=== PATIENT | male | born 1960 | race Caucasian/White ===

== ENCOUNTER 2017-10-07 16:28 | Emergency (ER) | payer OTHER ==
[2017-10-07] MEDS ORDERED: Sodium Chloride 0.9% 10 ML Syringe FLUSH PRN ×2 (16:44→17:47)
[2017-10-07] MEDS ORDERED: Aspirin 81 MG Tab.Chew PO ONE (16:44)
[2017-10-07 16:46] VITALS: BP 144/102
--- NOTE | 2017-10-07 17:36 | EDM.PDOC ---
ED HPI GENERAL MEDICAL PROBLEM - General Chief Complaint: Chest Pain Stated Complaint: CHEST PAIN Time Seen by Provider: 10/07/17 16:39 Source of Information: Reports: Patient History Limitations: Reports: No Limitations - History of Present Illness INITIAL COMMENTS - FREE TEXT/NARRATIVE: The patient presents with chest pain. This started after he came in from the cold when he was out shoveling for 2 hours. He got diaphoretic and he may have passed out for a short time. He says he was recently treated for pneumonia. He also had an AZ a couple of years ago. He went to get a stent and with the cath they noted his arteries were open. He did not need any and they did not think he had an AZ. He has HTN that is controlled. The pain is worse with deep breathing and cough. He has no history of DVT or PE. He does have a history of A-fib and he is on eliquis. He was recently switched from coumadin. Onset: Sudden Duration: Minutes: Location: Reports: Chest Quality: Reports: Sharp Severity: Moderate Improves with: Reports: None Worsens with: Reports: None Associated Symptoms: Reports: Chest Pain, Cough, Fever/Chills. Denies: Nausea/ Vomiting, Shortness of Breath Right Chest Pain Score (Numeric/FACES): 7 - Related Data Allergies Allergy/AdvReac Type Severity Reaction Status Date / Time No Known Allergies Allergy Verified 10/07/17 16:46 Home Meds: Home Meds Albuterol Sulfate [Proair Respiclick] 2 puff INH Q4HR PRN 11/01/15 [History] Aspirin [Halfprin] 1 tab PO DAILY 11/01/15 [History] Carvedilol 1 tab PO BID 11/01/15 [History] Enalapril [Vasotec] 1 tab PO BID 11/01/15 [History] Furosemide [Lasix] 20 mg PO DAILY 11/01/15 [History] Spironolactone [Aldactone] 1 tab PO BID 11/01/15 [History] Apixaban [Eliquis] 5 mg PO BID 10/07/17 [History] Benzonatate 200 mg PO TID PRN 10/07/17 [History] Hydrocodone/Acetaminophen [Hydrocodon-Acetaminophen 5-325] 1 - 2 each PO Q6HR PRN #20 tablet 10/07/17 [Rx] Levofloxacin 500 mg PO DAILY 10/07/17 [History] Nitroglycerin [Nitrostat] 1 tab SL ASDIRECTED PRN 10/07/17 [History] Past Medical History Cardiovascular History: Reports: Afib, Hypertension Respiratory History: Reports: Bronchitis, Recurrent Other Respiratory History: Pt states had a bleb removed from right lung in 2011 Gastrointestinal History: Reports: None Genitourinary History: Reports: None Musculoskeletal History: Reports: None Neurological History: Reports: None Psychiatric History: Reports: None Endocrine/Metabolic History: Reports: None Hematologic History: Reports: None Oncologic (Cancer) History: Reports: None Dermatologic History: Reports: None - Infectious Disease History Infectious Disease History: Reports: None - Past Surgical History Respiratory Surgical History: Reports: Other (See Below) Other Respiratory Surgeries/Procedures: removal of pleura of right lung Social & Family History - Tobacco Use Smoking Status *Q: Current Every Day Smoker Years of Tobacco use: 40 Packs/Tins Daily: 3 - Caffeine Use Caffeine Use: Reports: Coffee, Soda - Alcohol Use Days Per Week of Alcohol Use: 7 Number of Drinks Per Day: 3 Total Drinks Per Week: 21 Date of Last Drink: 10/06/17 Time of Last Drink: 20:00 - Recreational Drug Use Recreational Drug Use: No ED ROS GENERAL - Review of Systems Review Of Systems: See Below Constitutional: Reports: Chills HEENT: Reports: No Symptoms Respiratory: Reports: Cough Cardiovascular: Reports: No Symptoms Endocrine: Reports: No Symptoms GI/Abdominal: Reports: No Symptoms : Reports: No Symptoms Musculoskeletal: Reports: No Symptoms Skin: Reports: No Symptoms ED EXAM, GENERAL - Physical Exam Exam: See Below Exam Limited By: No Limitations General Appearance: Alert, No Apparent Distress Ears: Normal External Exam Nose: Normal Inspection Head: Atraumatic, Normocephalic Neck: Normal Inspection Respiratory/Chest: No Respiratory Distress, Rhonchi Cardiovascular: Regular Rate, Rhythm, No Edema, No Murmur GI/Abdominal: Soft, Non-Tender, No Organomegaly, No Mass Back Exam: Normal Inspection Extremities: Normal Inspection EKG INTERPRETATION EKG Date: 10/07/17 Time: 16:35 Rhythm: A-Fib Rate (Beats/Min): 77 [place]: Normal QRS: Normal ST-T: Normal QT: Normal Course - Vital Signs Last Recorded V/S: Last Vital Signs Temp 96.3 F 10/07/17 16:41 Pulse 87 10/07/17 16:41 Resp 20 10/07/17 16:41 BP 144/102 H 10/07/17 16:41 Pulse Ox 96 10/07/17 18:17 - Orders/Labs/Meds Orders: Active Orders 24 hr Category Date Time Status Cardiac Monitoring [RC] . DIRECTED Care 10/07/17 16:44 Active EKG Documentation Completion [RC] STAT Care 10/07/17 16:45 Active Oxygen Therapy [RC] PRN Care 10/07/17 16:44 Active Peripheral IV Care [RC] . DIRECTED Care 10/07/17 16:45 Active Chest 1V Frontal [CR] Stat Exams 10/07/17 16:45 Taken Sodium Chloride 0.9% [Normal Saline] 100 ml Med 10/07/17 18:00 Active IV ASDIRECTED Sodium Chloride 0.9% [Saline Flush] Med 10/07/17 16:44 Active 10 ml FLUSH ASDIRECTED PRN Sodium Chloride 0.9% [Saline Flush] Med 10/07/17 17:47 Active 10 ml FLUSH ONETIME PRN Peripheral IV Insertion Adult [OM.PC] Stat Oth 10/07/17 16:44 Ordered Medication Orders Sodium Chloride (Normal Saline) 100 mls @ 65 mls/hr IV ASDIRECTED EMILY Last Admin: 10/07/17 18:09 Dose: 65 mls/hr Sodium Chloride (Saline Flush) 10 ml FLUSH ASDIRECTED PRN PRN Reason: Keep Vein Open Last Admin: 10/07/17 16:53 Dose: 10 ml Sodium Chloride (Saline Flush) 10 ml FLUSH ONETIME PRN PRN Reason: IV FLUSH Last Admin: 10/07/17 18:10 Dose: 10 ml Labs: Laboratory Tests 10/07/17 10/07/17 10/07/17 Range/Units 16:40 16:40 16:40 WBC 18.31 H (4.23-9.07) K/mm3 RBC 5.03 (4.63-6.08) M/mm3 Hgb 17.6 H (13.7-17.5) gm/L Hct 52.3 H (40.1-51.0) % MCV 104.0 H (79.0-92.2) fl MCH 35.0 H (25.7-32.2) pg MCHC 33.7 (32.2-35.5) g/dl RDW Std Deviation 50.7 H (35.1-43.9) fL Plt Count 238 (163-337) K/mm3 MPV 9.0 L (9.4-12.3) fl Neut % (Auto) 75.3 H (34.0-67.9) % Lymph % (Auto) 14.5 L (21.8-53.1) % [place] % (Auto) 7.6 (5.3-12.2) % Eos % (Auto) 1.2 (0.8-7.0) Baso % (Auto) 0.4 (0.1-1.2) % Neut # (Auto) 13.80 H (1.78-5.38) K/mm3 Lymph # (Auto) 2.65 (1.32-3.57) K/mm3 [place] # (Auto) 1.39 H (0.30-0.82) K/mm3 Eos # (Auto) 0.22 (0.04-0.54) K/mm3 Baso # (Auto) 0.07 (0.01-0.08) K/mm3 Manual Slide Review Normal smear D-Dimer, Quantitative 6.17 H (0.19-0.59) mg/L Sodium 137 (136-145) mEq/L Potassium 4.3 (3.5-5.1) mEq/L Chloride 103 (98-107) mEq/L Carbon Dioxide 28 (21-32) mEq/L Anion Gap 10.3 (5-15) BUN 14 (7-18) mg/dL Creatinine 0.9 (0.7-1.3) mg/dL Est Cr Clr Drug Dosing 108.23 mL/min Estimated GFR (MDRD) > 60 (>60) mL/min BUN/Creatinine Ratio 15.6 (14-18) Glucose 109 H (74-106) mg/dL Calcium 8.7 (8.5-10.1) mg/dL Total Bilirubin 0.6 (0.2-1.0) mg/dL AST 49 H (15-37) U/L ALT 62 (16-63) U/L Alkaline Phosphatase 58 (46-116) U/L Troponin I < 0.017 (0.00-0.056) ng/mL Total Protein 7.6 (6.4-8.2) g/dl Albumin 3.1 L (3.4-5.0) g/dl Globulin 4.5 gm/dL Albumin/Globulin Ratio 0.7 L (1-2) Meds: Medications Generic Name Dose Route Start Last Admin Trade Name Afua PRN Reason Stop Dose Admin Sodium Chloride 100 mls @ 65 mls/hr 10/07/17 18:00 10/07/17 18:09 Normal Saline IV 65 mls/hr ASDIRECTED EMILY Administration Sodium Chloride 10 ml 10/07/17 16:44 10/07/17 16:53 Saline Flush FLUSH 10 ml ASDIRECTED PRN Administration Keep Vein Open Sodium Chloride 10 ml 10/07/17 17:47 10/07/17 18:10 Saline Flush FLUSH 10 ml ONETIME PRN Administration IV FLUSH Discontinued Medications Generic Name Dose Route Start Last Admin Trade Name Afua PRN Reason Stop Dose Admin Aspirin 324 mg 10/07/17 16:44 10/07/17 16:53 Aspirin PO 10/07/17 16:45 324 mg ONETIME ONE Administration Iopamidol 100 ml 10/07/17 17:47 10/07/17 18:09 Isovue-370 (76%) IVPUSH 10/07/17 17:48 100 ml ONETIME ONE Administration Iopamidol 50 ml 10/07/17 17:47 10/07/17 18:09 Isovue-370 (76%) IVPUSH 10/07/17 17:48 50 ml ONETIME ONE Administration - Re-Assessments/Exams Free Text/Narrative Re-Assessment/Exam: 10/07/17 17:52 I ordered an IV saline lock, aspirin, EKG, CXR and labs. His EKG shows A-fib with no acute changes. His CXR shows some congestion and possibly an early infiltrate to the right lower lung. 10/07/17 17:55 His WBC was elevated at 18.31. His Hgb was a little elevated at 17.6. His AST was elevated at 49. His troponin is negative. 10/07/17 18:28 His D-dimer was elevated at 6.17. I have ordered a CT angio of his chest. 10/07/17 19:[address] shows rib fractures involving the second through sixth ribs. No callus is seen and these are felt to fairly acute. Old rib fracture noted within the sixth rib with adjacent pleural thickening. No findings of pulmonary embolism. Incidental cyst within the left lobe of the liver. No acute pulmonary densities are seen. He may have passed out in his house and broke some ribs. I will give him a dilaudid here and incentive spyrometry. I will also give him a prescription for something for pain. 10/07/17 19:07 I will also get him on a holter monitor for 48 hours. Departure - Departure Time of Disposition: 19:10 Disposition: Home, Self-Care 01 Condition: Good Clinical Impression: Rib fractures Qualifiers: Encounter type: initial encounter Rib fracture type: multiple ribs Fracture type: closed Laterality: right Qualified Code(s): S22.41XA - Multiple fractures of ribs, right side, initial encounter for closed fracture Syncope Qualifiers: Syncope type: unspecified Qualified Code(s): R55 - Syncope and collapse Prescriptions: Hydrocodone/Acetaminophen [Hydrocodon-Acetaminophen 5-325] 1 - 2 each PO Q6HR PRN #20 tablet PRN Reason: Pain Referrals: Jose Daniel Jr, MD [Primary Care Provider] - 1 Week Forms: ED Department Discharge Additional Instructions: Wear the holter monitor for 48 hours. Use the incentive spyrometer 10 reps every other hour while awake for 5 days. Finish taking the levaquin. Take the hydrocodone as needed for pain. Follow up with Dr Daniel in 1 week. Please return if you are worse such as more pain, shortness of breath, cough or fever. - My Orders Last 24 Hours: My Active Orders 10/07/17 16:44 Cardiac Monitoring [RC] . DIRECTED Oxygen Therapy [RC] PRN Sodium Chloride 0.9% [Saline Flush] 10 ml FLUSH ASDIRECTED PRN Peripheral IV Insertion Adult [OM.PC] Stat 10/07/17 16:45 EKG Documentation Completion [RC] STAT Peripheral IV Care [RC] . DIRECTED Chest 1V Frontal [CR] Stat 10/07/17 17:47 Sodium Chloride 0.9% [Saline Flush] 10 ml FLUSH ONETIME PRN 10/07/17 18:00 Sodium Chloride 0.9% [Normal Saline] 100 ml IV ASDIRECTED - Assessment/Plan Last 24 Hours: My Active Orders 10/07/17 16:44 Cardiac Monitoring [RC] . DIRECTED Oxygen Therapy [RC] PRN Sodium Chloride 0.9% [Saline Flush] 10 ml FLUSH ASDIRECTED PRN Peripheral IV Insertion Adult [OM.PC] Stat 10/07/17 16:45 EKG Documentation Completion [RC] STAT Peripheral IV Care [RC] . DIRECTED Chest 1V Frontal [CR] Stat 10/07/17 17:47 Sodium Chloride 0.9% [Saline Flush] 10 ml FLUSH ONETIME PRN 10/07/17 18:00 Sodium Chloride 0.9% [Normal Saline] 100 ml IV ASDIRECTED
[2017-10-07] MEDS ORDERED: Iopamidol 755 Mg/ML 100 ML Bottle IVPUSH ONE (17:47)
[2017-10-07] MEDS ORDERED: Iopamidol 755 MG/ML 50 ML Bottle IVPUSH ONE (17:47)
[2017-10-07] MEDS ORDERED: Sodium Chloride 0.9% 100 ML IV SCH (18:00)
--- NOTE | 2017-10-07 18:36 | CT ---
Addendum: Technique portion of the dictation shows a voice recognition error. The last sentence within the technique paragraph should read as follows: Study has been performed as a pulmonary angiogram protocol. --- Addendum1 above dictated on [10/11/2017 10:09] by [Arie Penny Hilton J.] --- --- Addendum1 above signed on [10/11/2017 10:11] by [Arie Penny Hilton J.] --- --- Original report below dictated on [10/07/2017 18:32] by [Arie Penny Hilton J.] --- --- Original report below signed on [10/07/2017 18:32] by [Arie Penny Hilton J.] --- CT chest Technique: Multiple axial sections through the chest were obtained. Intravenous contrast was utilized. Study has been performed as a pulmonary antrum protocol. Findings: Pulmonary arteries are fairly well-opacified. There are no filling defects seen to indicate pulmonary embolism. Mediastinum and hilar regions show no adenopathy or mass. No abnormality is seen within the visualized upper abdomen other than a cyst within the liver measuring 1.7 cm. Lungs show nothing acute. Fractures are seen within the right anterior second, third and fourth ribs. Additional fracture with in the anterolateral sixth rib is seen. There is no bridging callus within these fractures so age is fairly acute. Slight pleural thickening is seen in an area of an old healed rib fracture within the sixth lateral right rib. More acute rib fracture is seen more anteriorly within the sixth rib. No left-sided rib fracture is seen. Impression: 1. Rib fractures involving the second through sixth ribs. No callus is seen and these are felt to be fairly acute. 2. Old rib fracture noted within the sixth rib with adjacent pleural thickening. 3. No findings of pulmonary embolism. Incidental cyst within the left lobe of the liver. 4. No acute pulmonary densities are seen. Diagnostic code #3 --- Addendum1 signed ---
[2017-10-07] MEDS ORDERED: HYDROmorphone 1 MG/ML Syringe IVPUSH ONE (19:05)
--- NOTE | 2017-10-08 07:14 | CR ---
Chest: Portable view of the chest was obtained. Comparison: Prior chest x-ray of 11/01/15. Heart is slightly enlarged. Upper mediastinum is normal. Pulmonary vessels are mildly congested. Slight atelectasis is noted within the left lung base. Bony structures are grossly intact. Impression: 1. Findings as noted above. No significant change from previous study is seen. Diagnostic code #3
== END 2017-10-07 19:56 | disposition home or self-care (01) ==
LOC: JD.ED 16:28
DX: S22.41XA Multiple fractures of ribs, right side, initial encounter for closed fracture (principal); R55 Syncope and collapse; I10 Essential (primary) hypertension; I48.91 Unspecified atrial fibrillation; I25.2 Old myocardial infarction; F17.210 Nicotine dependence, cigarettes, uncomplicated; Z79.82 Long term (current) use of aspirin; Z79.899 Other long term (current) drug therapy; X58.XXXA Exposure to other specified factors, initial encounter
CPT/HCPCS: 36415; 71045; 71275; 80053; 84484; 85025; 85379; 93005; 96374; 99285; A9270; J1170; J7030; J7050; Q9967; 93010; 99284

== ENCOUNTER 2017-11-18 09:31 | Day surgery (SDC) | payer OTHER ==
[~2017-11-18 09:31] MED LIST: Cefuroxime 10 MG/ML SYRINGE EYERT SCH; Pilocarpine 4% Ophth Soln 15 ML Bot EYERT SCH
[2017-11-18] MEDS: Polymyxin B/Trimethoprim 10 ML Bottle EYERT SCH ×3 (11:01→12:53)
[2017-11-18] MEDS: Brimonidine 0.2% Ophth Soln 5 ML Bottle EYERT SCH ×3 (11:06→12:53)
[2017-11-18] MEDS: Phenylephrine 2.5% Ophth Soln 2 ML Bot EYERT SCH ×6 (11:11→12:25)
--- NOTE | 2017-11-18 11:45 | PCM.PREANE ---
Preanesthetic Assessment - Anesthesia/Transfusion/Family Hx Anesthesia History: Prior Anesthesia Without Reaction Family History of Anesthesia Reaction: No Transfusion History: No Prior Transfusion(s) Intubation History: Unknown - Review of Systems General: No Symptoms Pulmonary: No Symptoms Cardiovascular: No Symptoms Gastrointestinal: No Symptoms Neurological: No Symptoms, Change in Speech - Physical Assessment NPO Status Date: 11/17/17 NPO Status Time: 21:30 Pulse: 86 O2 Sat by Pulse Oximetry: 97 Respiratory Rate: 20 Blood Pressure: 128/81 Vital Signs: Last Vital Signs Temp 37.2 C 11/18/17 10:45 Pulse 86 11/18/17 10:45 Resp 20 11/18/17 10:45 BP 128/81 11/18/17 10:45 Pulse Ox 97 11/18/17 10:45 Height: 1.91 m Weight: 145.15 kg ASA Class: 2 Mental Status: Alert & Oriented x3 Airway Class: Mallampati = 2 Dentition: Reports: Normal Dentition Thyro-Mental Finger Breadths: 2 Mouth Opening Finger Breadths: 3 ROM/Head Extension: Full Lungs: Wheezing (insp wheeze RUL) Cardiovascular: Irregular Rhythm (pt states a-fib) - Allergies Allergies/Adverse Reactions: Allergies Allergy/AdvReac Type Severity Reaction Status Date / Time No Known Allergies Allergy Verified 11/17/17 12:34 PreAnesthesia Questionnaire HEENT History: Reports: Cataract Cardiovascular History: Reports: Afib, Hypertension Respiratory History: Reports: Bronchitis, Recurrent Other Respiratory History: Pt states had a bleb removed from right lung in 2011 Gastrointestinal History: Reports: None Genitourinary History: Reports: None Musculoskeletal History: Reports: None Neurological History: Reports: None Psychiatric History: Reports: None Endocrine/Metabolic History: Reports: None Hematologic History: Reports: None Oncologic (Cancer) History: Reports: None Dermatologic History: Reports: None - Infectious Disease History Infectious Disease History: Reports: None - Past Surgical History Head Surgeries/Procedures: Reports: None HEENT Surgical History: Reports: None Cardiovascular Surgical History: Reports: None Respiratory Surgical History: Reports: Other (See Below) Other Respiratory Surgeries/Procedures: removal of pleura of right lung GI Surgical History: Reports: None, Appendectomy Female Surgical History: Reports: None Male Surgical History: Reports: None Endocrine Surgical History: Reports: None Neurological Surgical History: Reports: None Musculoskeletal Surgical History: Reports: None Oncologic Surgical History: Reports: None Dermatological Surgical History: Reports: None - SUBSTANCE USE Smoking Status *Q: Current Every Day Smoker Tobacco Use Within Last Twelve Months: Cigarettes Days Per Week of Alcohol Use: 7 Number of Drinks Per Day: 3 Total Drinks Per Week: 21 Recreational Drug Use History: No - HOME MEDS Home Medications: Home Meds Aspirin [Halfprin] 1 tab PO DAILY 11/01/15 [History] Carvedilol 1 tab PO BID 11/01/15 [History] Enalapril [Vasotec] 1 tab PO BID 11/01/15 [History] Furosemide [Lasix] 20 mg PO DAILY 11/01/15 [History] Spironolactone [Aldactone] 1 tab PO BID 11/01/15 [History] Apixaban [Eliquis] 5 mg PO BID 10/07/17 [History] Benzonatate 200 mg PO TID PRN 10/07/17 [History] - CURRENT (IN HOUSE) MEDS Current Meds: Current Medications Brimonidine Tartrate (Alphagan 0.2% Ophth Soln) 0 ml EYERT ASDIRECTED EMILY Stop: 11/18/17 18:00 Last Admin: 11/18/17 11:06 Dose: 1 drop Cefuroxime Sodium (Zinacef) 0 mg EYERT ASDIRECTED EMILY Stop: 11/18/17 18:00 Lidocaine HCl (Xylocaine-Mpf 1%) 10 ml INJECT ASDIRECTED EMILY Stop: 11/18/17 18:00 Phenylephrine HCl (Jeffery-Synephrine 2.5% Ophth Soln) 0 ml EYERT ASDIRECTED EMILY Stop: 11/18/17 18:00 Last Admin: 11/18/17 11:35 Dose: 1 drop Pilocarpine HCl (Pilocar 4% Ophth Soln) 0 ml EYERT ASDIRECTED EMLIY Stop: 11/18/17 18:00 Polymyxin/Trimethoprim Sulfate (Polytrim Ophth Soln) 0 ml EYERT ASDIRECTED EMILY Stop: 11/18/17 18:00 Last Admin: 11/18/17 11:01 Dose: 1 drop Tetracaine HCl (Tetracaine 0.5% Steri-Unit Meri) 0 ml EYERT ASDIRECTED EMILY Stop: 11/18/17 18:00 Tropicamide (Mydriacyl 1% Ophth Soln) 0 ml EYERT ASDIRECTED EMILY Stop: 11/18/17 18:00 Last Admin: 11/18/17 11:29 Dose: 1 drop
[2017-11-18] MEDS: Tetracaine HCl/PF 0.5% 4 ML Bottle EYERT SCH ×2 (12:04→12:42)
[2017-11-18] MEDS: Lidocaine 1% PF 2 ML SDV INJECT SCH ×2 (12:20→12:41)
--- NOTE | 2017-11-18 13:05 | PCM48HPAN ---
Post Anesthesia Note - EVALUATION WITHIN 48HRS OF ANESTHETIC Vital Signs in Normal Range: Yes Patient Participated in Evaluation: Yes Respiratory Function Stable: Yes Airway Patent: Yes Cardiovascular Function Stable: Yes Hydration Status Stable: Yes Pain Control Satisfactory: Yes Nausea and Vomiting Control Satisfactory: Yes Mental Status Recovered: Yes Pulse Rate: 86 SaO2: 95 Resp Rate: 20 Temperature: 97 C Blood Pressure: 147/70
[2017-11-18 14:11] VITALS: BP 141/87
== END 2017-11-18 13:08 | disposition home or self-care (01) ==
LOC: JD.SDS 09:31
PROVIDERS: ATTEND Ophthalmology
DX: H25.813 Combined forms of age-related cataract, bilateral (principal); H02.831 Dermatochalasis of right upper eyelid; H02.834 Dermatochalasis of left upper eyelid; I48.91 Unspecified atrial fibrillation; I10 Essential (primary) hypertension; F17.210 Nicotine dependence, cigarettes, uncomplicated; Z90.49 Acquired absence of other specified parts of digestive tract; Z98.890 Other specified postprocedural states; Z79.82 Long term (current) use of aspirin; Z79.01 Long term (current) use of anticoagulants; Z79.899 Other long term (current) drug therapy
CPT/HCPCS: 66984; C1780; J0697; A9270-GY

== ENCOUNTER 2018-12-30 06:18 | Day surgery (SDC) | payer OTHER ==
[~2018-12-30 06:18] MED LIST changes: -Cefuroxime 10 MG/ML SYRINGE EYERT SCH; +Lactated Ringers 1,000 ML IV SCH; +Lidocaine 1%/Sod Bicarbonate in NS 8.4% 1 ML Syringe IDERM PRN; -Pilocarpine 4% Ophth Soln 15 ML Bot EYERT SCH; +Sodium Chloride 0.9% 10 ML Syringe FLUSH PRN
[2018-12-30] MEDS ORDERED: Albuterol 0.083% 2.5 MG/3 ML Neb Soln NEB ONE (06:50)
--- NOTE | 2018-12-30 07:15 | PCM.PREANE ---
Preanesthetic Assessment - Anesthesia/Transfusion/Family Hx Anesthesia History: Prior Anesthesia Without Reaction Family History of Anesthesia Reaction: No Transfusion History: No Prior Transfusion(s) Intubation History: Unknown - Review of Systems General: Weakness Pulmonary: Shortness of Breath, Cough Cardiovascular: Dyspnea on Exertion Gastrointestinal: No Symptoms Neurological: No Symptoms Other: Reports: None - Physical Assessment NPO Status Date: 12/30/18 NPO Status Time: 02:00 Pulse: 86 O2 Sat by Pulse Oximetry: 93 Respiratory Rate: 20 Blood Pressure: 142/81 Temperature: 36.6 C Vital Signs: Last Vital Signs Temp 36.5 C 12/30/18 06:30 Pulse 86 12/30/18 06:30 Resp 20 12/30/18 06:30 BP 142/81 H 12/30/18 06:30 Pulse Ox 93 L 12/30/18 06:30 Height: 1.91 m Weight: 153.314 kg ASA Class: 3 Mental Status: Alert & Oriented x3 Airway Class: Mallampati = 2 Dentition: Reports: [place](s) Thyro-Mental Finger Breadths: 2 Mouth Opening Finger Breadths: 2 ROM/Head Extension: Full Lungs: Clear to Auscultation, Normal Respiratory Effort Cardiovascular: Regular Rate, Regular Rhythm - Allergies Allergies/Adverse Reactions: Allergies Allergy/AdvReac Type Severity Reaction Status Date / Time No Known Allergies Allergy Verified 12/29/18 12:04 - Blood Blood Available: No Product(s) Available: None - Anesthesia Plan Pre-Op Medication Ordered: Beta Vianney Beta Vianney: Carvedilol Med Last Dose Date: 12/30/18 Med Last Dose Time: 06:00 - Acknowledgements Anesthesia Type Planned: MAC Pt an Appropriate Candidate for the Planned Anesthesia: Yes Alternatives and Risks of Anesthesia Discussed w Pt/Guardian: Yes Pt/Guardian Understands and Agrees with Anesthesia Plan: Yes PreAnesthesia Questionnaire HEENT History: Reports: Cataract, Impaired Vision Cardiovascular History: Reports: Afib, CAD, Hypertension Respiratory History: Reports: Bronchitis, Recurrent, COPD, Sleep Apnea, SOB Other Respiratory History: Pt states had a bleb removed from right lung in 2011 Gastrointestinal History: Reports: None Genitourinary History: Reports: None Musculoskeletal History: Reports: Back Pain, Chronic Neurological History: Reports: None Psychiatric History: Reports: None Endocrine/Metabolic History: Reports: None Hematologic History: Reports: None Immunologic History: Reports: None Oncologic (Cancer) History: Reports: None Dermatologic History: Reports: None - Infectious Disease History Infectious Disease History: Reports: None - Past Surgical History Head Surgeries/Procedures: Reports: None HEENT Surgical History: Reports: None Cardiovascular Surgical History: Reports: None Respiratory Surgical History: Reports: Other (See Below) Other Respiratory Surgeries/Procedures: removal of pleura of right lung GI Surgical History: Reports: Appendectomy Female Surgical History: Reports: None Male Surgical History: Reports: None Endocrine Surgical History: Reports: None Neurological Surgical History: Reports: None Musculoskeletal Surgical History: Reports: None Oncologic Surgical History: Reports: None Dermatological Surgical History: Reports: None - SUBSTANCE USE Smoking Status *Q: Current Every Day Smoker Tobacco Use Within Last Twelve Months: Cigarettes Second Hand Smoke Exposure: Yes Days Per Week of Alcohol Use: 7 Number of Drinks Per Day: 2 Total Drinks Per Week: 14 Recreational Drug Use History: No - HOME MEDS Home Medications: Home Meds Aspirin [Halfprin] 81 mg PO DAILY 11/01/15 [History] Carvedilol 12.5 mg PO BID 11/01/15 [History] Enalapril [Vasotec] 5 mg PO DAILY 11/01/15 [History] Furosemide [Lasix] 20 mg PO DAILY 11/01/15 [History] Spironolactone [Aldactone] 1 tab PO BID 11/01/15 [History] Apixaban [Eliquis] 5 mg PO BID 10/07/17 [History] Umeclidinium Brm/Vilanterol Tr [Anoro Ellipta 62.5-25 MCG] 1 puff INH DAILY 01/13 [History] - CURRENT (IN HOUSE) MEDS Current Meds: Current Medications Lactated Ringer's (Ringers, Lactated) 1,000 mls @ 125 mls/hr IV ASDIRECTED EMILY Stop: 12/30/18 23:00 Last Admin: 12/30/18 06:35 Dose: 125 mls/hr Lidocaine/Sodium Bicarbonate (Buffered Lidocaine 1% In Ns 8.4%) 0.25 ml IDERM ONETIME PRN PRN Reason: Prior to IV Start Stop: 12/30/18 18:00 Sodium Chloride (Saline Flush) 10 ml FLUSH ASDIRECTED PRN PRN Reason: Keep Vein Open Stop: 12/30/18 18:00 Discontinued Medications Albuterol (Proventil Neb Soln) 2.5 mg NEB ONETIME ONE Stop: 12/30/18 06:51 Last Admin: 12/30/18 07:00 Dose: 2.5 mg
[2018-12-30] MEDS ORDERED: fentaNYL 100 MCG/2 ML SDV ONE (07:22)
[2018-12-30] MEDS ORDERED: Midazolam 1 MG/ML 2 ML SDV ONE (07:22)
[2018-12-30] MEDS ORDERED: Lidocaine 1% 4 ML ONE (07:22)
[2018-12-30] MEDS ORDERED: Propofol 200 MG/20 ML SDV ONE ×4 (07:22→08:56)
[2018-12-30] MEDS ORDERED: Ketamine 500 mg/10 ML MDV ONE (07:25)
--- NOTE | 2018-12-30 09:43 | PCM.OPNOTE ---
- General Post-Op/Procedure Note Date of Surgery/Procedure: 12/30/18 Operative Procedure(s): Diagnostic Esophagogastroduodenoscopy with possible biopsy and Diagnostic colonoscopy with cold forceps biopsy and hot snare polypectomy Findings: 1. Gastritis 2. Esophagitis 3. Colon polyps 4. Rectal Mass 5. Diverticulosis Pre Op Diagnosis: Positive Fecal Immunochemical Test Post-Op Diagnosis: 1. Gastritis 2. Esophagitis 3. Colon polyps 4. Mid Rectal Mass 5. Diverticulosis Anesthesia Technique: MAC Primary Surgeon: Raghav Thompson Anesthesia Provider: Nestor Aquino EBL in mLs: 10 Complications: None Condition: Good Free Text/Narrative:: After the patient gave verbal and written consent he was placed on blood pressure and pulse ox monitoring. He was given IV sedation which he tolerated well. The olympus gastroscope was inserted in the oropharynx and passed down to the second portion of the duodenum. The scope was slowly withdrawn and the mucosa was carefully examined. The duodenum appeared normal. Mild gastritis was noted and biopsied with cold forceps biopsy. The scope was retroflexed then straightened out and brought back to the gastroesophageal junction. Mild esophagitis was noted and biopsied with cold forceps biopsy. The scope was then removed. The patient was then prepped for colonoscopy and the olympus colonoscope was inserted per rectum and advanced to the cecum without difficulty. The ileocecal valve and appendiceal orfice were imaged documenting cecal intubation. The scope was slowly withdrawn and the mucosal surfaces were carefully examined. The prep was good. The views were good. A large sessile carpet-like polyp was noted in the ascending colon. This was biopsied with cold forceps biopsy. The polyp was not completely removed. Multiple colon polyps were noted and removed with snare polypectomy: cecum, 90 cm, 80 cm, 75 cm, 40 cm, 30 cm, and 25 cm. The polyps ranged in size from 2 mm to 8 mm. There was good hemostasis after removal. They were completely removed. A 4-5 cm mid polypoid rectal mass was noted and biopsied with snare. The edges and boundary were tattooed with ink. The scope was retroflexed in the rectum. There was hemostasis at the end of the procedure and there were no complications. THe patient tolerated the procedure well and left the endoscopy suite in good condition.
[2018-12-30 10:52] VITALS: BP 140/74
== END 2018-12-30 10:05 | disposition home or self-care (01) ==
LOC: JD.SDS 06:18
PROVIDERS: ATTEND Family Medicine
DX: K57.31 Diverticulosis of large intestine without perforation or abscess with bleeding (principal); K29.51 Unspecified chronic gastritis with bleeding; D12.8 Benign neoplasm of rectum; D12.0 Benign neoplasm of cecum; D12.4 Benign neoplasm of descending colon; D12.5 Benign neoplasm of sigmoid colon; K63.5 Polyp of colon; K20.9 Esophagitis, unspecified; I25.10 Atherosclerotic heart disease of native coronary artery without angina pectoris; I10 Essential (primary) hypertension; I48.2 Chronic atrial fibrillation; I25.2 Old myocardial infarction; J44.9 Chronic obstructive pulmonary disease, unspecified; F17.210 Nicotine dependence, cigarettes, uncomplicated; G47.30 Sleep apnea, unspecified; E66.3 Overweight; Z68.41 Body mass index [BMI] 40.0-44.9, adult; Z80.0 Family history of malignant neoplasm of digestive organs; Z79.82 Long term (current) use of aspirin; Z79.01 Long term (current) use of anticoagulants; Z79.899 Other long term (current) drug therapy
CPT/HCPCS: 43239; 45380; 45381; 45385; 94640; J2001; J2250; J2704; J3010; J7120; 00813

== ENCOUNTER 2019-10-19 08:30 | Emergency (ER) | payer OTHER ==
[2019-10-19 09:11] VITALS: PULSE 100
--- NOTE | 2019-10-19 09:35 | EDM.PDOC ---
ED HPI GENERAL MEDICAL PROBLEM - General Chief Complaint: ENT Problem Stated Complaint: NOSE BLEED Time Seen by Provider: 10/19/19 09:15 Source of Information: Reports: Patient, RN Notes Reviewed - History of Present Illness INITIAL COMMENTS - FREE TEXT/NARRATIVE: 58-year-old male comes in with left-sided nosebleed. This started about 90 minutes ago. Has been drainage both to the front and also down the back of his throat. There also has been drainage from the right nares. He is on eliquis. He was having some nosebleed trouble last week but none for the last few days up until this morning. - Related Data Allergies Allergy/AdvReac Type Severity Reaction Status Date / Time No Known Allergies Allergy Verified 10/19/19 09:11 Home Meds: Home Meds Enalapril [Vasotec] 5 mg PO DAILY 11/01/15 [History] Furosemide [Lasix] 20 mg PO DAILY 11/01/15 [History] Spironolactone [Aldactone] 1 tab PO BID 11/01/15 [History] carvediloL [Carvedilol] 12.5 mg PO BID 11/01/15 [History] Apixaban [Eliquis] 5 mg PO BID 10/07/17 [History] Umeclidinium Brm/Vilanterol Tr [Anoro Ellipta 62.5-25 MCG] 1 puff INH DAILY 01/13 [History] Allopurinol [Zyloprim] 100 mg PO DAILY 10/19/19 [History] Past Medical History HEENT History: Reports: Cataract, Impaired Vision Cardiovascular History: Reports: Afib, CAD, Hypertension Respiratory History: Reports: Bronchitis, Recurrent, COPD, Sleep Apnea, SOB Other Respiratory History: Pt states had a bleb removed from right lung in 2011 Gastrointestinal History: Reports: None Genitourinary History: Reports: None Musculoskeletal History: Reports: Back Pain, Chronic Neurological History: Reports: None Psychiatric History: Reports: None Endocrine/Metabolic History: Reports: None Hematologic History: Reports: None Immunologic History: Reports: None Oncologic (Cancer) History: Reports: None Dermatologic History: Reports: None - Infectious Disease History Infectious Disease History: Reports: None - Past Surgical History Head Surgeries/Procedures: Reports: None HEENT Surgical History: Reports: None Cardiovascular Surgical History: Reports: None Respiratory Surgical History: Reports: Other (See Below) Other Respiratory Surgeries/Procedures: removal of pleura of right lung GI Surgical History: Reports: Appendectomy Male Surgical History: Reports: None Endocrine Surgical History: Reports: None Neurological Surgical History: Reports: None Musculoskeletal Surgical History: Reports: None Oncologic Surgical History: Reports: None Dermatological Surgical History: Reports: None Social & Family History - Tobacco Use Smoking Status *Q: Current Every Day Smoker Years of Tobacco use: 35 Packs/Tins Daily: 1 - Caffeine Use Caffeine Use: Reports: Coffee, Soda - Recreational Drug Use Recreational Drug Use: No ED ROS ENT - Review of Systems Review Of Systems: See Below Constitutional: Denies: Fever, Chills HEENT: Reports: Nosebleed. Denies: Throat Pain Respiratory: Denies: Shortness of Breath Cardiovascular: Denies: Chest Pain GI/Abdominal: Denies: Abdominal Pain, Nausea, Vomiting Musculoskeletal: Reports: No Symptoms Skin: Reports: No Symptoms Neurological: Reports: No Symptoms. Denies: Dizziness ED EXAM, ENT - Physical Exam Exam: See Below General Appearance: Alert, No Apparent Distress Eye Exam: Bilateral Eye: PERRL Nose: Other (large clot R nares, slight bleeding R lower ant nares at time of initial exam) Mouth/Throat: Normal Inspection. No: Bleeding Head: Atraumatic Cardiovascular: Regular Rate, Rhythm GI/Abdominal: Soft, Non-Tender Extremities: Normal Inspection, Normal Range of Motion. No: Pedal Edema Neurological: Alert, Oriented, No Motor/Sensory Deficits Skin: Warm, Dry, Normal Color, No Rash ED ENT PROCEDURES - Epistaxis Procedure Indication: Epistaxis Recent anticoagulants/antiplatlets: Yes Uncontrolled HTN: No Recent septal/nasal surgery: No Site of bleeding: Right Nare Clearing of clots: Patient Blew Nose Topical Meds: Topical Cocaine Chemical cautery: Silver Nitrate Topical (no further bleeding) Course - Vital Signs Last Recorded V/S: Last Vital Signs Temp 98.9 F 10/19/19 09:09 Pulse 100 10/19/19 09:09 Resp 22 H 10/19/19 10:19 BP 145/89 H 10/19/19 10:19 Pulse Ox 94 L 10/19/19 10:19 - Orders/Labs/Meds Meds: Medications Discontinued Medications Generic Name Dose Route Start Last Admin Trade Name Freq PRN Reason Stop Dose Admin Cocaine HCl Confirm 10/19/19 09:22 10/19/19 10:18 Cocaine Hcl Administered 10/19/19 09:23 Not Given Dose 4 ml .ROUTE .STK-MED ONE Cocaine HCl 4 ml 10/19/19 10:16 10/19/19 09:25 Cocaine Hcl SHARONA 10/19/19 10:17 4 ml ONETIME ONE Administration Departure - Departure Time of Disposition: 10:15 Disposition: Home, Self-Care 01 Condition: Fair Clinical Impression: Epistaxis - Discharge Information Instructions: Nosebleed, [id number] Referrals: Jose Daniel Jr, MD [Primary Care Provider] - Forms: ED Department Discharge Additional Instructions: Do not take the eliquis today, you can resume tomorrow. Rest, try not to blow nose on the left side for the next several days, this will take 3-4 days to completely heal. Vaseline or antibiotic ointment 2-3 times daily distal nose both sides for moisturization, use humidifier as needed. Pressure if needed for any further bleeding. Follow up clinic as needed, return to ED as needed. Sepsis Event Note - Evaluation Sepsis Screening Result: No Definite Risk - Focused Exam Date Exam was Performed: 10/20/19 Time Exam was Performed: 16:17
[2019-10-19 10:20] VITALS: BP 145/89
== END 2019-10-19 11:10 | disposition home or self-care (01) ==
LOC: JD.ED 08:30
DX: R04.0 Epistaxis (principal); I10 Essential (primary) hypertension; I25.10 Atherosclerotic heart disease of native coronary artery without angina pectoris; F17.210 Nicotine dependence, cigarettes, uncomplicated; Z90.49 Acquired absence of other specified parts of digestive tract; Z79.899 Other long term (current) drug therapy
CPT/HCPCS: 30901; 99282; 99283-25

== ENCOUNTER 2019-11-16 07:45 | Day surgery (SDC) | payer OTHER ==
[~2019-11-16 07:45] MED LIST changes: +Cefuroxime 10 MG/ML SYRINGE EYELF SCH; -Lactated Ringers 1,000 ML IV SCH; +Lidocaine 1% PF 2 ML SDV INJECT SCH; -Lidocaine 1%/Sod Bicarbonate in NS 8.4% 1 ML Syringe IDERM PRN; +Pilocarpine 4% Ophth Soln 15 ML Bot EYELF SCH; -Sodium Chloride 0.9% 10 ML Syringe FLUSH PRN
--- NOTE | 2019-11-16 07:56 | PCM.PREANE ---
Preanesthetic Assessment - Anesthesia/Transfusion/Family Hx Anesthesia History: Prior Anesthesia Without Reaction Family History of Anesthesia Reaction: No Transfusion History: No Prior Transfusion(s) Intubation History: Unknown - Review of Systems General: No Symptoms Pulmonary: Shortness of Breath Cardiovascular: Dyspnea on Exertion Gastrointestinal: No Symptoms Neurological: No Symptoms Other: Reports: Easy Bleeding, Liver Problems - Physical Assessment Height: 1.91 m Weight: 154.221 kg ASA Class: 3 Mental Status: Alert & Oriented x3 Airway Class: Mallampati = 3 Dentition: Reports: Broken Tooth/Teeth ROM/Head Extension: Full Lungs: Decreased Breath Sounds, Wheezing Cardiovascular: Irregular Rhythm, Murmurs - Allergies Allergies/Adverse Reactions: Allergies Allergy/AdvReac Type Severity Reaction Status Date / Time No Known Allergies Allergy Verified 10/19/19 09:11 - Blood Blood Available: No Product(s) Available: None - Anesthesia Plan Pre-Op Medication Ordered: None Beta Vianney: Carvedilol Med Last Dose Date: 11/15/19 Med Last Dose Time: 09:00 - Acknowledgements Anesthesia Type Planned: MAC Pt an Appropriate Candidate for the Planned Anesthesia: Yes Alternatives and Risks of Anesthesia Discussed w Pt/Guardian: Yes Pt/Guardian Understands and Agrees with Anesthesia Plan: Yes PreAnesthesia Questionnaire HEENT History: Reports: Cataract, Impaired Vision Cardiovascular History: Reports: Afib, CAD, Hypertension Respiratory History: Reports: Bronchitis, Recurrent, COPD, Sleep Apnea, SOB Other Respiratory History: Pt states had a bleb removed from right lung in 2011 Gastrointestinal History: Reports: None Genitourinary History: Reports: None Musculoskeletal History: Reports: Back Pain, Chronic Neurological History: Reports: None Psychiatric History: Reports: None Endocrine/Metabolic History: Reports: None Hematologic History: Reports: None Immunologic History: Reports: None Oncologic (Cancer) History: Reports: None Dermatologic History: Reports: None - Infectious Disease History Infectious Disease History: Reports: None - Past Surgical History Head Surgeries/Procedures: Reports: None HEENT Surgical History: Reports: None Cardiovascular Surgical History: Reports: None Respiratory Surgical History: Reports: Other (See Below) Other Respiratory Surgeries/Procedures: removal of pleura of right lung GI Surgical History: Reports: Appendectomy Male Surgical History: Reports: None Endocrine Surgical History: Reports: None Neurological Surgical History: Reports: None Musculoskeletal Surgical History: Reports: None Oncologic Surgical History: Reports: None Dermatological Surgical History: Reports: None - HOME MEDS Home Medications: Home Meds Enalapril [Vasotec] 5 mg PO DAILY 11/01/15 [History] Furosemide [Lasix] 20 mg PO DAILY 11/01/15 [History] Spironolactone [Aldactone] 1 tab PO BID 11/01/15 [History] carvediloL [Carvedilol] 12.5 mg PO BID 11/01/15 [History] Apixaban [Eliquis] 5 mg PO BID 10/07/17 [History] Umeclidinium Brm/Vilanterol Tr [Anoro Ellipta 62.5-25 MCG] 1 puff INH DAILY 01/13 [History] Allopurinol [Zyloprim] 100 mg PO DAILY 10/19/19 [History] - CURRENT (IN HOUSE) MEDS Current Meds: Current Medications Brimonidine Tartrate (Alphagan 0.2% Ophth Soln) 0 ml EYELF ASDIRECTED EMILY Stop: 11/16/19 23:00 Cefuroxime Sodium (Zinacef) 0 mg EYELF ASDIRECTED EMILY Stop: 11/16/19 23:00 Lidocaine HCl (Xylocaine-Mpf 1%) 0 ml INJECT ASDIRECTED EMILY Stop: 11/16/19 23:00 Phenylephrine HCl (Jeffery-Synephrine 2.5% Ophth Soln) 0 ml EYELF ASDIRECTED EMILY Stop: 11/16/19 23:00 Pilocarpine HCl (Pilocar 4% Ophth Soln) 0 ml EYELF ASDIRECTED EMILY Stop: 11/16/19 23:00 Polymyxin/Trimethoprim Sulfate (Polytrim Ophth Soln) 0 ml EYELF ASDIRECTED EMILY Stop: 11/16/19 23:00 Tetracaine HCl (Tetracaine 0.5% Steri-Unit Meri) 0 ml EYELF ASDIRECTED EMILY Stop: 11/16/19 23:00 Tropicamide (Mydriacyl 1% Ophth Soln) 0 ml EYELF ASDIRECTED EMILY Stop: 11/16/19 23:00
[2019-11-16] MEDS: Polymyxin B/Trimethoprim 10 ML Bottle EYELF SCH ×3 (08:00→09:41)
[2019-11-16] MEDS: Brimonidine 0.2% Ophth Soln 5 ML Bottle EYELF SCH ×3 (08:05→09:41)
[2019-11-16] MEDS: Phenylephrine 2.5% Ophth Soln 2 ML Bot EYELF SCH ×5 (08:11→09:25)
[2019-11-16] MEDS: Tropicamide 1% Ophth Soln 15 ML Bottle EYELF SCH ×4 (08:17→09:05)
[2019-11-16] MEDS: Tetracaine HCl/PF 0.5% 4 ML Bottle EYELF SCH ×2 (09:17→09:33)
[2019-11-16 09:56] VITALS: BP 167/62; PULSE 91
--- NOTE | 2019-11-16 13:29 | PCM48HPAN ---
Post Anesthesia Note - EVALUATION WITHIN 48HRS OF ANESTHETIC Vital Signs in Normal Range: Yes Patient Participated in Evaluation: Yes Respiratory Function Stable: Yes Airway Patent: Yes Cardiovascular Function Stable: Yes Hydration Status Stable: Yes Pain Control Satisfactory: Yes Nausea and Vomiting Control Satisfactory: Yes Mental Status Recovered: Yes Vital Signs: Last Vital Signs Temp 36.8 C 11/16/19 09:45 Pulse 91 11/16/19 09:45 Resp 24 H 11/16/19 09:45 BP 167/62 H 11/16/19 09:45 Pulse Ox 95 11/16/19 09:45
== END 2019-11-16 09:52 | disposition home or self-care (01) ==
LOC: JD.SDS 07:45
PROVIDERS: ATTEND Ophthalmology
DX: H25.812 Combined forms of age-related cataract, left eye (principal); H26.491 Other secondary cataract, right eye; H35.3132 Nonexudative age-related macular degeneration, bilateral, intermediate dry stage; H35.363 Drusen (degenerative) of macula, bilateral; H16.4 Corneal neovascularization; H52.31 Anisometropia; H02.834 Dermatochalasis of left upper eyelid; H02.831 Dermatochalasis of right upper eyelid; M10.9 Gout, unspecified; I10 Essential (primary) hypertension; J44.9 Chronic obstructive pulmonary disease, unspecified; F17.210 Nicotine dependence, cigarettes, uncomplicated; Z79.01 Long term (current) use of anticoagulants; Z96.1 Presence of intraocular lens; Z90.49 Acquired absence of other specified parts of digestive tract; Z79.899 Other long term (current) drug therapy
CPT/HCPCS: 66984; C1780; J0697; J2001

== ENCOUNTER 2020-06-16 13:43 | Emergency (ER) | payer OTHER ==
[~2020-06-16 13:43] MED LIST changes: +Amiodarone 150 MG/3 ML SDV ONE; -Cefuroxime 10 MG/ML SYRINGE EYELF SCH; +EPINEPHrine 1:10,000 1 MG/10 ML Syringe ONE; -Lidocaine 1% PF 2 ML SDV INJECT SCH; -Pilocarpine 4% Ophth Soln 15 ML Bot EYELF SCH; +Sodium Bicarbonate 8.4% 50 MEQ/50 ML Syringe ONE
--- NOTE | 2020-06-16 14:34 | EDM.PDOC ---
ED HPI GENERAL MEDICAL PROBLEM - General Chief Complaint: CPR in Progress Stated Complaint: [facility] Time Seen by Provider: 06/16/20 14:01 Source of Information: Reports: EMS History Limitations: Reports: Altered Mental Status - History of Present Illness INITIAL COMMENTS - FREE TEXT/NARRATIVE: The patient presents by [facility] for cardiac arrest. He was at [facility] and collapsed before he got his food. CPR was started right away and police arrived with an AED and defibrillated him twice. He was breathing when EMS arrived and he had a faint pulse. He was put in the ambulance and lost the pulse. CPR was started and he was in V-fib and he was defibrillated twice. He went asystole and an IO was started and he was given epinephrine. A franko airway was inserted. When he arrived to our facility he was in PEA. CPR was continued. He has a history of CAD, A-fib, CA not requiring stents, and HTN. He smokes. Onset: Sudden Duration: Minutes: Improves with: Reports: None Worsens with: Reports: None - Related Data Allergies Allergy/AdvReac Type Severity Reaction Status Date / Time No Known Allergies Allergy Verified 10/19/19 09:11 Home Meds: Home Meds Enalapril [Vasotec] 5 mg PO DAILY 11/01/15 [History] Furosemide [Lasix] 20 mg PO DAILY 11/01/15 [History] Spironolactone [Aldactone] 1 tab PO BID 11/01/15 [History] carvediloL [Carvedilol] 12.5 mg PO BID 11/01/15 [History] Apixaban [Eliquis] 5 mg PO BID 10/07/17 [History] Umeclidinium Brm/Vilanterol Tr [Anoro Ellipta 62.5-25 MCG] 1 puff INH DAILY 12/29/18 [History] Allopurinol [Zyloprim] 100 mg PO DAILY 10/19/19 [History] Past Medical History HEENT History: Reports: Cataract, Impaired Vision Cardiovascular History: Reports: Afib, CAD, Hypertension Respiratory History: Reports: Bronchitis, Recurrent, COPD, Sleep Apnea, SOB Other Respiratory History: Pt states had a bleb removed from right lung in 2011 Gastrointestinal History: Reports: None Genitourinary History: Reports: None Musculoskeletal History: Reports: Back Pain, Chronic Neurological History: Reports: None Psychiatric History: Reports: None Endocrine/Metabolic History: Reports: None Hematologic History: Reports: None Immunologic History: Reports: None Oncologic (Cancer) History: Reports: None Dermatologic History: Reports: None - Infectious Disease History Infectious Disease History: Reports: None - Past Surgical History Head Surgeries/Procedures: Reports: None HEENT Surgical History: Reports: None Cardiovascular Surgical History: Reports: None Respiratory Surgical History: Reports: Other (See Below) Other Respiratory Surgeries/Procedures: removal of pleura of right lung GI Surgical History: Reports: Appendectomy Male Surgical History: Reports: None Endocrine Surgical History: Reports: None Neurological Surgical History: Reports: None Musculoskeletal Surgical History: Reports: None Oncologic Surgical History: Reports: None Dermatological Surgical History: Reports: None Social & Family History - Caffeine Use Caffeine Use: Reports: Coffee, Soda ED ROS GENERAL - Review of Systems Review Of Systems: Unable To Obtain Reason Not Obtained: CPR in progress ED EXAM, CPR - Physical Exam Exam: See Below Limited By: Altered Mental Status General Appearance: Obtunded Ears: Normal External Exam Nose: Normal Inspection Head: Atraumatic, Normocephalic Respiratory Chest: Other (Patinet being ventilated with a franko airway. Equal lung sounds) Cardiovascular: Pulse with Compression, CPR In Progress GI/Abdominal Exam: Distended Course - Orders/Labs/Meds Orders: Active Orders 24 hr Category Date Time Status HEPATITIS B SURFACE AG [CHEM] Stat Lab 06/16/20 13:52 Received HEPATITIS C ANTIBODY [CHEM] Stat Lab 06/16/20 13:52 Received HIV RAPID SCREEN RLFX COMFIRM [CHEM] Stat Lab 06/16/20 13:52 Received Labs: Laboratory Tests 06/16/20 06/16/20 06/16/20 Range/Units 13:59 13:59 13:59 WBC 14.42 H (4.23-9.07) K/mm3 RBC 4.71 (4.63-6.08) M/mm3 Hgb 17.9 H (13.7-17.5) gm/dl Hct 54.5 H (40.1-51.0) % MCV 115.7 H D (79.0-92.2) fl MCH 38.0 H (25.7-32.2) pg MCHC 32.8 (32.2-35.5) g/dl RDW Std Deviation 60.8 H (35.1-43.9) fL Plt Count 128 L D (163-337) K/mm3 MPV 9.8 (9.4-12.3) fl Neut % (Auto) 36.2 (34.0-67.9) % Lymph % (Auto) 48.0 (21.8-53.1) % [place] % (Auto) 11.3 (5.3-12.2) % Eos % (Auto) 2.6 (0.8-7.0) Baso % (Auto) 0.8 (0.1-1.2) % Neut # (Auto) 5.22 (1.78-5.38) K/mm3 Lymph # (Auto) 6.92 H (1.32-3.57) K/mm3 [place] # (Auto) 1.63 H (0.30-0.82) K/mm3 Eos # (Auto) 0.38 (0.04-0.54) K/mm3 Baso # (Auto) 0.11 H (0.01-0.08) K/mm3 Manual Slide Review Abnormal smear PT 13.5 H (9.7-11.7) SECONDS INR 1.27 APTT 26 (22-31) SECONDS Sodium 142 (136-145) mEq/L Potassium 3.2 L (3.5-5.1) mEq/L Chloride 102 (98-107) mEq/L Carbon Dioxide 27 (21-32) mEq/L Anion Gap 16.2 H (5-15) BUN 8 (7-18) mg/dL Creatinine 1.3 (0.7-1.3) mg/dL Est Cr Clr Drug Dosing TNP Estimated GFR (MDRD) 56 (>60) mL/min BUN/Creatinine Ratio 6.2 L (14-18) Glucose 178 H (74-106) mg/dL Calcium 8.6 (8.5-10.1) mg/dL Total Bilirubin 0.7 (0.2-1.0) mg/dL AST 130 H (15-37) U/L ALT 92 H (16-63) U/L Alkaline Phosphatase 94 (46-116) U/L Troponin I 0.048 (0.00-0.056) ng/mL Total Protein 7.2 (6.4-8.2) g/dl Albumin 2.8 L (3.4-5.0) g/dl Globulin 4.4 gm/dL Albumin/Globulin Ratio 0.6 L (1-2) - Re-Assessments/Exams Free Text/Narrative Re-Assessment/Exam: 06/16/20 14:37 Josafat bush was called prior to his arrival and all of my team was ready. The patient was moved to our cot and CPR was started. He was to large for the lucus device. I ordered epinephrine 1mg every 3 minutes. He had good lung sounds with the franko airway. My nurse put an IV in the right AC. He was given amiodarone 300mg IV and sodium bicarb 1 amp. We did get a pulse back for a short time but it faded away in a few beats. He also did go into V-fib at one time and he was defibrillated once. He went into asystole and we were unable to get a pulse back. He was pronounced at 1359 on 06/16/10. I went to talk to his . He has not been ill lately. He did have some m edical problems as stated in the HPI. The hotel manager was called. 06/16/20 14:43 Critical care time was 30 minutes. Departure - Departure Time of Disposition: 14:45 Disposition: 20 Preliminary Cause of *Q: Cardiac Arrest Condition: Critical Clinical Impression: Cardiac arrest - Discharge Information Forms: ED Department Discharge - My Orders Last 24 Hours: My Active Orders 06/16/20 13:52 HEPATITIS B SURFACE AG [CHEM] Stat HEPATITIS C ANTIBODY [CHEM] Stat HIV RAPID SCREEN RLFX COMFIRM [CHEM] Stat - Assessment/Plan Last 24 Hours: My Active Orders 06/16/20 13:52 HEPATITIS B SURFACE AG [CHEM] Stat HEPATITIS C ANTIBODY [CHEM] Stat HIV RAPID SCREEN RLFX COMFIRM [CHEM] Stat
== END 2020-06-16 17:37 | disposition expired ==
LOC: JD.ED 13:43
DX: I46.9 Cardiac arrest, cause unspecified (principal); I10 Essential (primary) hypertension; I25.10 Atherosclerotic heart disease of native coronary artery without angina pectoris; I48.91 Unspecified atrial fibrillation; J44.9 Chronic obstructive pulmonary disease, unspecified; Z79.01 Long term (current) use of anticoagulants; Z79.899 Other long term (current) drug therapy
CPT/HCPCS: 36415; 36680; 80053; 84484; 85025; 85610; 85730; 92950; 99285; J0171; J0282; 99291